=== PATIENT | female | born 1995 | race Caucasian/White ===

== ENCOUNTER 2018-07-17 01:18 | Emergency (ER) | payer BC ==
[~2018-07-17] VITALS: Ht 157.5 cm; Wt 72.6 kg
[2018-07-17 03:31] VITALS: BP 126/78
== END 2018-07-17 03:31 | disposition home or self-care (01) ==
LOC: ER 01:18
DX: S61.213A Laceration without foreign body of left middle finger without damage to nail, initial encounter (principal); F17.210 Nicotine dependence, cigarettes, uncomplicated; W26.0XXA Contact with knife, initial encounter; Y93.89 Activity, other specified; Y92.89 Other specified places as the place of occurrence of the external cause; Y99.8 Other external cause status